=== PATIENT | female | born 1930 | race Hispanic/Latino ===

== ENCOUNTER 2016-12-24 10:50 | Outpatient (CLI) | payer MEDICARE, OTHER ==
--- NOTE | 2016-12-24 11:53 | Mammography Report ---
Bilateral digital screening mammogram with CAD. Comparison study is dated November 01, 2015. Findings: There is heterogeneous density of the fibroglandular tissue. In the lateral left breast on the CC projection, there is a focal parenchymal asymmetry which has not changed since the prior study and demonstrates no suspicious features. This is not identified on the MLO projection. The right breast is stable. No suspicious calcifications are seen. Impression: Stable benign findings. BI-RADS code: 2. Recommendation: Annual screening.
== END 2016-12-24 10:51 | disposition home or self-care (01) ==
LOC: SPVWC 10:50
PROVIDERS: ATTEND Obstetrics & Gynecology
DX: Z12.31 Encounter for screening mammogram for malignant neoplasm of breast (principal); I10 Essential (primary) hypertension; E78.00 Pure hypercholesterolemia, unspecified
CPT/HCPCS: 77067; G0202

== ENCOUNTER 2017-12-30 10:55 | Outpatient (CLI) | payer MEDICARE, OTHER ==
--- NOTE | 2017-12-31 11:34 | Mammography Report ---
BILATERAL DIGITAL SCREENING MAMMOGRAM with CAD : 12/30/17 10:55:00 CLINICAL: Routine screening. COMPARISON:12/24/16 FINDINGS: The breasts are heterogeneously dense, which may obscure small masses.Bilateral benign vascular calcifications. No mass, architectural distortion or suspicious calcifications. IMPRESSION: No mammographic evidence of malignancy. BI-RADS CATEGORY: 2 -- Benign RECOMMENDATION: Routine mammographic screening in one year. COMMENT: Patient follow-up letters are generated by our [employer] application.
== END 2017-12-30 10:56 | disposition home or self-care (01) ==
LOC: SPVWC 10:55
PROVIDERS: ATTEND Obstetrics & Gynecology
DX: Z12.31 Encounter for screening mammogram for malignant neoplasm of breast (principal); I10 Essential (primary) hypertension; E78.00 Pure hypercholesterolemia, unspecified; Z88.5 Allergy status to narcotic agent; Z88.2 Allergy status to sulfonamides
CPT/HCPCS: 77067

== ENCOUNTER 2018-06-09 12:21 | Emergency (ER) | payer MEDICARE, OTHER ==
--- NOTE | 2018-06-09 12:40 | Emergency Department Report ---
Blank Doc - Documentation Documentation: This is a 87-year-old female that presents with left leg pain. Patient was sent to ED from PCP to r/o DVT. Patient has history of DVT. This initial assessment/diagnostic orders/clinical plan/treatment(s) is/are subject to change based on patient's health status, clinical progression and re- assessment by fellow clinical providers in the ED. Further treatment and workup at subsequent clinical providers discretion. Patient/guardians urged not to elope from the ED as their condition may be serious if not clinically assessed and managed. Initial orders include: 1- Patient sent to MAIN ED for further evaluation and treatment 2- Doppler US
--- NOTE | 2018-06-09 13:59 | Vascular Lab Report ---
PROCEDURE: VL VENOUS DUPLEX LE LT TECHNIQUE: Layton scale, color and pulsed Doppler ultrasound with color flow and spectral analysis eval uation of left lower extremity was performed to assess for deep vein thrombosis. HISTORY: EDEMA COMPARISONS: None currently available. FINDINGS: LEFT extremity: Noncompressibility in the left common femoral and popliteal veins. Minimal compressibility is noted t hroughout the left superficial femoral vein. Otherwise, there is normal grayscale appearance and compressibility. Normal phasic pulsed Doppler and normal color Doppler flow are visualized. The interrogated vessels show normal augmentation. IMPRESSION: * No evidence for acute DVT in the left common femoral vein down to the popliteal vein. This document is electronically signed by Preston Bowens MD., June 09 2018 01:57:06 PM ET
[2018-06-09 14:18] LABS: Basophils % (Auto) 0.5 % (0.0-1.8); Eosinophils % (Auto) 0.8 % (0.0-4.3); Hemoglobin 11.6 gm/dl (10.1-14.3); Lymphocytes % (Auto) 21.4 % (13.4-35.0); Mean Corpuscular HGB Conc 33 % (30-34); Mean Corpuscular Volume 95 fl (79-97); Monocytes # (Auto) 0.3 K/mm3 (0.0-0.8); Monocytes % (Auto) 7.1 % (0.0-7.3); Platelet Count 105 K/mm3 (140-440); Red Blood Count 3.69 M/mm3 (3.65-5.03); Red Cell Distribution Width 14.7 % (13.2-15.2)
[2018-06-09 14:27] LABS: INR 0.99 (0.87-1.13)
[2018-06-09 14:28] LABS: Partial Thromboplastin Time 26.4 Sec. (24.2-36.6)
[2018-06-09 14:35] LABS: Calcium 9.5 mg/dL (8.4-10.2)
--- NOTE | 2018-06-09 14:45 | Consultation ---
History of Present Illness - Reason for Consult Consult date: 06/09/18 DVT LLE - History of Present Illness 87-year-old female with past medical history of hypertension and hypercholesterolemia who presents with multiple months duration of left lower extremity swelling and discomfort. Patient has a history of a DVT a few years ago in the right lower extremity. Denies history of falls. Has some mild cognitive deficits. Patient also has some small areas of furnuncles or possibly folliculitis of the left lower extremity which have been intermittently present for the last month. She has had swelling of the left lower extremity for a period of "a few months" and it has slowly worsened. Does not appear to have any breathing issues. No fevers. Palpable pedal pulses on physical exam. Past History Past Medical History: DVT, hypertension, hyperlipidemia Past Surgical History: No surgical history Social history: Lives alone Family history: no significant family history Medications and Allergies Allergies Allergy/AdvReac Type Severity Reaction Status Date / Time codeine Allergy Unknown Verified 06/09/18 12:28 sulfur dioxide Allergy Unknown Verified 06/09/18 12:28 Home Medications Medication Instructions Recorded Confirmed Last Taken Type Aspirin [Aspirin BABY CHEW TAB] 81 mg PO QDAY 03/20/16 03/20/16 03/19/16 History Losartan [Cozaar] 100 mg PO QDAY 03/20/16 03/20/16 03/19/16 History Simvastatin [Zocor TAB] 10 mg PO QHS 03/20/16 03/20/16 03/19/16 History amLODIPine [Norvasc] 5 mg PO DAILY 03/20/16 03/20/16 03/19/16 History Rivaroxaban [Xarelto] 15 mg PO BIDDIAB #42 tablet 03/21/16 Unknown Rx Rivaroxaban [Xarelto] 20 mg PO QDAY #30 tab 03/21/16 Unknown Rx Active Meds: Active Medications Apixaban (Eliquis) 10 mg PO ONCE ONE; Protocol Stop: 06/09/18 14:38 Review of Systems All systems: negative (see HPI) Exam - Constitutional Vitals: Temp Pulse Resp BP Pulse Ox 98.4 F 80 16 156/88 98 06/09/18 12:38 06/09/18 12:38 06/09/18 12:38 06/09/18 12:38 06/09/18 12:38 General appearance: Present: no acute distress - EENT Eyes: Present: EOM intact ENT: hearing intact - Respiratory Respiratory effort: normal - Extremities Extremities: normal temperature, normal color Extremity abnormal: edema (left lower extremity), erythema (around folliculitis of left lower extremity) - Abdominal General gastrointestinal: Present: soft - Psychiatric Psychiatric: appropriate mood/affect, cooperative Results - Labs CBC & Chem 7: 06/09/18 13:43 06/09/18 13:43 Labs: Abnormal lab results 06/09/18 06/09/18 Range/Units 13:43 13:43 Plt Count 105 L (140-440) K/mm3 Lymph # 1.0 L (1.2-5.4) K/mm3 Seg Neutrophils % 70.2 H (40.0-70.0) % BUN 24 H (7-17) mg/dL Assessment and Plan 87-year-old female who presents with subacute to chronic based on history proximal left lower extremity DVT with history of right lower extremity DVT. CT pulmonary angiogram pending. No evidence of phlegmasia. Given patient's advanced age, do not recommend percutaneous intervention. Recommend LOS hose/compression hose, anticoagulation, and antibiotics. Regarding antibiotics, recommend Augmentin and probiotics for 10 days. Recommend anticoagulation for life given that this is the second DVT. Recommend NOAC (Xarelto or Eliquis). Discussed compression hose with family. Discussed with family that they can likely follow up with her primary care doctor. He can refer her to vascular if required, but I do not suspect she will require referral.
--- NOTE | 2018-06-09 14:54 | Emergency Department Report ---
HPI - General Chief Complaint: Medical Clearance Time Seen by Provider: 06/09/18 12:37 - HPI HPI: This is an 87-year-old female who presents to the emergency department from the vascular lab, after having a venous Doppler ultrasound of her left leg, with the complaint of a DVT. The patient has been having left lower extremity pain and swelling going on for a few months. She was seeing her primary care physician, Dr. Wong, and after mentioning the symptoms she was sent for the outpatient venous Doppler ultrasound. She has a past nuchal history of hypertension, some dementia, high cholesterol, and she has a history of a right lower extremity DVT. She was on anticoagulation for about 6 months. ED Past Medical Hx - Past Medical History Previous Medical History?: Yes Hx Hypertension: Yes Additional medical history: high cholesterol - Surgical History Past Surgical History?: No - Social History Smoking Status: Never Smoker Substance Use Type: None - Medications Home Medications: Home Medications Medication Instructions Recorded Confirmed Last Taken Type Aspirin [Aspirin BABY CHEW TAB] 81 mg PO QDAY 03/20/16 03/20/16 03/19/16 History Losartan [Cozaar] 100 mg PO QDAY 03/20/16 03/20/16 03/19/16 History Simvastatin [Zocor TAB] 10 mg PO QHS 03/20/16 03/20/16 03/19/16 History amLODIPine [Norvasc] 5 mg PO DAILY 03/20/16 03/20/16 03/19/16 History Rivaroxaban [Xarelto] 15 mg PO BIDDIAB #42 tablet 03/21/16 Unknown Rx Rivaroxaban [Xarelto] 20 mg PO QDAY #30 tab 03/21/16 Unknown Rx Apixaban [Eliquis] 5 mg PO BID #74 tablet 06/09/18 Unknown Rx cephALEXin [Keflex] 500 mg PO Q8HR #21 cap 06/09/18 Unknown Rx ED Review of Systems ROS: Stated complaint: Other details as noted in HPI Comment: All other systems reviewed and negative Constitutional: denies: chills, fever Eyes: denies: eye pain, vision change ENT: denies: ear pain, throat pain Respiratory: denies: cough, shortness of breath Cardiovascular: edema. denies: chest pain Gastrointestinal: denies: abdominal pain, vomiting Genitourinary: denies: dysuria, discharge Musculoskeletal: myalgia. denies: back pain Skin: change in color. denies: rash Neurological: denies: headache, weakness Physical Exam - Physical Exam Vital Signs: Vital Signs 06/09/18 12:38 Temperature 98.4 F Pulse Rate 80 Respiratory 16 Rate Blood Pressure 156/88 [Left] O2 Sat by Pulse 98 Oximetry Physical Exam: GENERAL: The patient is well-developed well-nourished. HEENT: Normocephalic. Atraumatic. Patient has moist mucous membranes. EYES: Extraocular motions are intact. Pupils are equal and reactive to light bilaterally. NECK: Supple. Trachea is midline. CHEST/LUNGS: Clear to auscultation. There is no respiratory distress noted. HEART/CARDIOVASCULAR: Regular. There is no tachycardia. There is no obvious murmur. ABDOMEN: Abdomen is soft, nontender. Patient has normal bowel sounds. There is no abdominal distention. SKIN: There is moderate edema to the left lower extremity from the ankle up to the mid thigh. There is some erythema to the distal portion of the left lower extremity. NEURO: The patient is awake, alert, and cooperative. The patient has no focal neurologic deficits. The patient has normal speech. MUSCULOSKELETAL: There is no tenderness or deformity. There is no limitation range of motion. There is no evidence of acute injury. ED Course Vital Signs 06/09/18 12:38 Temperature 98.4 F Pulse Rate 80 Respiratory 16 Rate Blood Pressure 156/88 [Left] O2 Sat by Pulse 98 Oximetry - Consultations Consultation #1: 06/09/18 18:22 Patient was seen in the emergency department by Dr. Duncan, vascular surgery. He felt that the DVT appears more subacute or chronic and that the patient can go on anticoagulation, and will be for life, but can be safely discharged home if there are no acute findings on CT angiography. ED Medical Decision Making - Lab Data Result diagrams: 06/09/18 13:43 06/09/18 13:43 - Radiology Data Radiology results: report reviewed PROCEDURE: CT ANGIO CHEST TECHNIQUE: TECHNIQUE: Computerized tomographic angiography of the chest was performed after the IV injection of iodinated nonionic contrast including image processing. The image data was postprocessed using 2-dimensional multiplanar reformatted (MPR) and 3- dimensional (MIP and/or volume rendered) techniques. Automated exposure control, adjustment of mA and/or kV according to patient size, or iterative reconstruction dose optimization techniques were utilized. Coronal and sagittal reconstructed imaging provided. CT DOSE LENGTH PRODUCT: 424.95 mGy-cm. HISTORY: SOB, DVT COMPARISONS: None currently available. FINDINGS: Thickened interseptal thickening with interspersed groundglass opacities and honeycombing in both lung bases. Traction bronchiectasis and cystic changes identified. Mild interseptal thickening with interspersed groundglass opacities in both upper lungs. No pneumothorax. No large consolidation. No endobronchial lesion. No significant effusion. Main pulmonary artery is unremarkable. No pulmonary embolism. No aneurysm. No dissection. Major branch arteries are within normal limits. Mild atherosclerotic disease. Moderate cardiomegaly. No pericardial effusion. Coronary artery disease. There is no axillary adenopathy. Prominent subcentimeter mediastinal lymph nodes with one of the larger lymph nodes measuring 8.5 mm. No mass. Prominent right hilar lymph node measures 0.9 cm and prominent left hilar lymph node measures 0.8 cm. No hilar mass. Heterogenous thyroid gland. Low density nodule in the left lobe measures 1.2 cm. Other nodules are not excluded. Limited images of the esophagus are unremarkable. Stomach: Moderate hiatal hernia. Otherwise unremarkable. Liver: Partially imaged heterogeneous enhancing area in the left liver on series 2:113 measures approximately 4.2 cm. Biliary: Significantly dilated intra and extrahepatic biliary ducts. Common bile duct measures 1.9 cm. Bones: No suspicious osseous lesions on this limited examination of the skeleton. Metastatic disease better evaluated with bone scan. Degenerative changes are present in the spine. Scoliosis. IMPRESSION: * No pulmonary embolus. No aortic aneurysm. No dissection. * Cardiomegaly. * Bibasilar pulmonary findings suggest chronic interstitial changes.. Differential diagnosis includes fibrotic-type pneumonitis (UIP and NSIP), radiation and drug-induced fibrosis, autoimmune pneumonitis, connective tissue pneumonitis (e.g. arthritis), and granulomatous disease (e.g. sarcoidosis) fibrosis. * Also suspect superimposed mild pulmonary vascular congestion without significant edema or effusion. * Left thyroid nodule. This document is electronically signed by Preston Beatty MD., June 09 2018 04:01:51 PM ET Transcribed By: TYM Dictated By: PRESTON BEATTY MD Electronically Authenticated By: PRESTON BEATTY MD Signed Date/Time: 06/09/18 7931 PROCEDURE: VL VENOUS DUPLEX LE LT TECHNIQUE: Layton scale, color and pulsed Doppler ultrasound with color flow and spectral analysis evaluation of left lower extremity was performed to assess for deep vein thrombosis. HISTORY: EDEMA COMPARISONS: None currently available. FINDINGS: LEFT extremity: Noncompressibility in the left common femoral and popliteal veins. Minimal compressibility is noted throughout the left superficial femoral vein. Otherwise, there is normal grayscale appearance and compressibility. Normal phasic pulsed Doppler and normal color Doppler flow are visualized. The interrogated vessels show normal augmentation. IMPRESSION: * No evidence for acute DVT in the left common femoral vein down to the popliteal vein. This document is electronically signed by Preston Beatty MD., June 09 2018 01:57:06 PM ET Transcribed By: TYM Dictated By: PRESTON BEATTY MD Electronically Authenticated By: PRESTON BEATTY MD Signed Date/Time: 06/09/18 2405 - Medical Decision Making This patient was sent in to venous Doppler ultrasound by her primary care physician. She was then sent here to the emergency department after findings of a left lower extremity DVT from the femoral down to the popliteal. The patient also had a CT angiography of the chest that did not show any pulmonary embolus, dissection, aneurysm, or any other acute process. She was seen by vascular surgery in the emergency department who agrees with the plan for anticoagulation and outpatient follow-up. Vital signs stable throughout her ED course. - Differential Diagnosis DVT, venous stasis, cellulitis Critical Care Time: No Critical care attestation.: If time is entered above; I have spent that time in minutes in the direct care of this critically ill patient, excluding procedure time. ED Disposition Clinical Impression: Acute deep vein thrombosis (DVT) of left lower extremity Qualifiers: Affected thrombotic vein of extremity: unspecified vein of extremity Qualified Code(s): I82.402 - Acute embolism and thrombosis of unspecified deep veins of left lower extremity Cellulitis Qualifiers: Site of cellulitis: extremity Site of cellulitis of extremity: lower extremity Laterality: left Qualified Code(s): L03.116 - Cellulitis of left lower limb Disposition: - TO HOME OR SELFCARE Is pt being admited?: No Condition: Stable Instructions: Cellulitis (ED), Deep Venous Thrombosis (ED) Additional Instructions: Please follow up with her primary care physician in the next few days. Return to the emergency department with any worsening of your symptoms or any acute distress. Prescriptions: Apixaban [Eliquis] 5 mg PO BID #74 tablet cephALEXin [Keflex] 500 mg PO Q8HR #21 cap Referrals: HARSHAD WONG MD [Primary Care Provider] - 3-5 Days Stephen Duncan [Other] - 3-5 Days Time of Disposition: 16:16
[2018-06-09] MEDS ORDERED: ELIQUIS PO ONE (15:37)
--- NOTE | 2018-06-09 16:03 | Cat Scan Report ---
PROCEDURE: CT ANGIO CHEST TECHNIQUE: TECHNIQUE: Computerized tomographic angiography of the chest was performed after the IV i njection of iodinated nonionic contrast including image processing. The image data was postprocessed using 2-dimensional multiplanar reformatted (MPR) and 3-dimensional (MIP and/or volume rendered) jaime hniques. Automated exposure control, adjustment of mA and/or kV according to patient size, or iterati ve reconstruction dose optimization techniques were utilized. Coronal and sagittal reconstructed imag ing provided. CT DOSE LENGTH PRODUCT: 424.95 mGy-cm. HISTORY: SOB, DVT COMPARISONS: None currently available. FINDINGS: Thickened interseptal thickening with interspersed groundglass opacities and honeycombing in both hollie g bases. Traction bronchiectasis and cystic changes identified. Mild interseptal thickening with inte rspersed groundglass opacities in both upper lungs. No pneumothorax. No large consolidation. No endob ronchial lesion. No significant effusion. Main pulmonary artery is unremarkable. No pulmonary embolism. No aneurysm. No dissection. Major branch arteries are within normal limits. Mild atherosclerotic dise ase. Moderate cardiomegaly. No pericardial effusion. Coronary artery disease. There is no axillary adenopathy. Prominent subcentimeter mediastinal lymph nodes with one of the larger lymph nodes measuring 8.5 mm. No mass. Prominent right hilar lymph node measures 0.9 cm and prominent left hilar lymph node measure s 0.8 cm. No hilar mass. Heterogenous thyroid gland. Low density nodule in the left lobe measures 1.2 cm. Other nodules are no t excluded. Limited images of the esophagus are unremarkable. Stomach: Moderate hiatal hernia. Otherwise unremarkable. Liver: Partially imaged heterogeneous enhancing area in the left liver on series 2:113 measures appro ximately 4.2 cm. Biliary: Significantly dilated intra and extrahepatic biliary ducts. Common bile duct measures 1.9 cm . Bones: No suspicious osseous lesions on this limited examination of the skeleton. Metastatic disease better evaluated with bone scan. Degenerative changes are present in the spine. Scoliosis. IMPRESSION: * No pulmonary embolus. No aortic aneurysm. No dissection. * Cardiomegaly. * Bibasilar pulmonary findings suggest chronic interstitial changes.. Differential diagnosis include s fibrotic-type pneumonitis (UIP and NSIP), radiation and drug-induced fibrosis, autoimmune pneumonit is, connective tissue pneumonitis (e.g. arthritis), and granulomatous disease (e.g. sarcoidosis) fibr osis. * Also suspect superimposed mild pulmonary vascular congestion without significant edema or effusion . * Left thyroid nodule. This document is electronically signed by Preston Bowens MD., June 09 2018 04:01:51 PM ET
[2018-06-09 18:12] VITALS: BP 168/85
== END 2018-06-09 18:05 | disposition home or self-care (01) ==
LOC: ED 12:21 → VAS 12:21 → ED 18:05
DX: I82.402 Acute embolism and thrombosis of unspecified deep veins of left lower extremity (principal); L03.116 Cellulitis of left lower limb; I10 Essential (primary) hypertension; E78.00 Pure hypercholesterolemia, unspecified; Z88.6 Allergy status to analgesic agent; Z88.2 Allergy status to sulfonamides
CPT/HCPCS: 36415; 71275; 80048; 85025; 85610; 85730; 93971; 99284; Q9967